=== PATIENT | male | born 1970 | race African-American/Black ===

== ENCOUNTER 2016-12-24 12:46 | Emergency (ER) | payer SELFPAY ==
[~2016-12-24] VITALS: Ht 185.4 cm; Wt 83.9 kg
[2016-12-24 13:30] VITALS: BP 140/92
[2016-12-24] MEDS ORDERED: NYST15CR2 TP (14:10)
--- NOTE | 2016-12-24 14:10 | PHYS DOC ---
Past Medical History Past Medical History: Other Additional Past Medical Histor: SARCOIDOSIS Past Surgical History: No Surgical History Alcohol Use: None Drug Use: None Adult General Chief Complaint Chief Complaint: GROIN PAIN HPI HPI Patient is a 46 year old male presents emergency department stating that he has had some redness along has pain now shaft as well as burning sensation around the penile shaft and around his testicles. He states that it increases more whenever he has sexual intercourse. He denies any penile drainage. He denies any difficulty with urination frequency urgency or pain with urination. Patient does state he is sexually active with one partner without protection. He is slightly concerned of sexual transmitted infections although does have one partner. Review of Systems Review of Systems Constitutional: Denies fever or chills [] Eyes: Denies change in visual acuity, redness, or eye pain [] HENT: Denies nasal congestion or sore throat [] Respiratory: Denies cough or shortness of breath [] Cardiovascular: No additional information not addressed in HPI [] GI: Denies abdominal pain, nausea, vomiting, bloody stools or diarrhea [] : Denies dysuria or hematuria [] Musculoskeletal: Denies back pain or joint pain [] Integument: Denies rash or skin lesions. Complaint of redness along the penile shaft with burning sensation to bilateral testicles Neurologic: Denies headache, focal weakness or sensory changes [] Allergies Allergies Allergies Coded Allergies Type Severity Reaction Last Updated Verified No Known Drug Allergies 12/24/16 No Physical Exam Physical Exam Constitutional: Well developed, well nourished, no acute distress, non-toxic appearance. [] HENT: Normocephalic, atraumatic, bilateral external ears normal, oropharynx moist, no oral exudates, nose normal. [] Eyes: PERRLA, EOMI, conjunctiva normal, no discharge. [] Neck: Normal range of motion, no tenderness, supple, no stridor. [] Cardiovascular patient pink warm and dry. Lungs & Thorax: No respiratory distress noted Skin: Warm, dry, no erythema, no rash. Penile shaft when foreskin is pulled back appears to be very red and irritated. Testicle areas do not appear to be red they appear to be normal at this time. Back: No tenderness Extremities: No tenderness, no cyanosis, no clubbing, ROM intact, no edema. [] Neurologic: Alert and oriented X 3, normal motor function, normal sensory function, no focal deficits noted. [] Psychologic: Affect normal, judgement normal, mood normal. [] Current Patient Data Vital Signs Vital Signs Date Time Temp Pulse Resp B/P Pulse Ox O2 Delivery O2 Flow Rate FiO2 12/24/16 13:30 97.7 65 16 100 Room Air 97.7 EKG EKG [] Radiology/Procedures Radiology/Procedures [] Course & Med Decision Making Course & Med Decision Making Pertinent Labs and Imaging studies reviewed. (See chart for details) Was escorted by nursing staff for assessment of the dental area. Patient with redness noted on the upper part of the penile shaft. No drainage discharge noted from the penis. Patient will be discharged home with nystatin in which patient has been instructed on how to use. Recommended keeping the area clean and dry. Signs and symptoms to return back to the emergency department and been provided. Patient will be discharged home in stable condition. Signs and symptoms to return back to emergency department has been provided. [] Dragon Disclaimer Dragon Disclaimer This electronic medical record was generated, in whole or in part, using a voice recognition dictation system. Departure Departure Impression: Primary Impression: Genital candidiasis in male Disposition: HOME, SELF-CARE Condition: STABLE Referrals: NO PCP (PCP) Patient Instructions: Yeast Infection of the Skin, [id number] Additional Instructions: Activity as tolerated. Keep the area clean and dry. Medication as prescribed. Follow-up through primary care physician in the next 3-5 days. Return back to emergency department signs and symptoms of become worse. You'll be contacted in 3-4 days if you're test results are positive. Scripts Nystatin/Triamcin (Nystatin-Triamcinolone Cream)15 Gm Cream..g.1 Radha TP BID #30 GM Ref 1 Prov:ANT GLASS NP 12/24/16 ANT GLASS NP Dec 24, 2016 14:10
== END 2016-12-24 14:22 | disposition home or self-care (01) ==
LOC: ER 12:46
DX: B37.49 Other urogenital candidiasis (principal)
CPT/HCPCS: 87491; 87591; 99284